=== PATIENT | female | born 1985 | race Hispanic/Latino ===

== ENCOUNTER 2024-10-29 09:41 | Emergency (ER) | payer BC, MEDICAID ==
[~2024-10-29] VITALS: Ht 162.6 cm; Wt 145.1 kg
--- NOTE | 2024-10-29 10:24 | ERN ---
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 Patient also complaining of a bump under her left armpit that has been there for years but noticed it was painful last night. Denies having any fever, nausea, vomiting diarrhea, chest pain or shortness a breath. Allergies: Coded Allergies: No Known Allergies (Unverified Allergy, Unknown, 10/29/24) Past Medical History Past Medical History: Hypertension Surgical History: LMP: Oct 14, 2024 Review of System Dictation Constitutional: Negative for fever,chills, and weight loss Eyes: Negative for injury, pain,redness, and discharge ENT: Complaining of throat pain Cardiovascular: Negative for chest pain, palpitations, and edema Respiratory: Negative for shortness of breath, cough, and wheezing, Abdomen/GI: Negative for abdominal pain, nausea, vomiting, diarrhea, and constipation Back: Negative for injury and pain : Negative for injury, bleeding and discharge MS/Extremity: Negative for injury and deformity Skin: Negative for rash, and discoloration complaining of, bump left under our Neuro: Negative for headache, weakness, numbness, tingling, and seizure Psych: Negative for suicide ideation, homicidal ideation, and hallucinations Review of Systems: was completed Initial Vital Sign VS Vital Signs Date Time Temp Pulse Resp B/P (MAP) Pulse Ox O2 Delivery O2 Flow Rate FiO2 10/29/24 11:30 97.9 87 18 150/80 99 Room Air* 0 21 Physical Exam Dictation Constitutional: Negative for fever,chills, and weight loss Eyes: Negative for injury, pain,redness, and discharge ENT: Negative for injury,pain or swelling Cardiovascular: Negative for chest pain, palpitations, and edema Respiratory: Negative for shortness of breath, cough, and wheezing, Abdomen/GI: Negative for abdominal pain, nausea, vomiting, diarrhea, and constipation Back: Negative for injury and pain : Negative for injury, bleeding and discharge MS/Extremity: Negative for injury and deformity Skin: Negative for rash, and discoloration Neuro: Negative for headache, weakness, numbness, tingling, and seizure Psych: Negative for suicide ideation, homicidal ideation, and hallucinations Results (Laboratory/Radiology) Laboratory/Radiology Laboratory Tests Test 10/29/24 09:50 Influenza Type A Antigen Negative For Type A Influenza Type B Antigen POSITIVE FOR TYPE B SARS-CoV-2, RNA, NAAT NEGATIVE SARS CoV-2 Group A Streptococcus Rapid negative (NEGATIVE) Labs Reviewed?: Yes ED Course ED Course Orders Procedure Category Date Status Time Covid Rna Naat LAB 10/29/24 Complete 09:47 Influenza Type A & B, LAB 10/29/24 Complete Rapid 09:47 Rapid (Group A Strep) LAB 10/29/24 Complete 09:47 Lidocaine Hcl 1% 20ml PHA 10/29/24 Complete Vial (Lidocaine Hc 10:13 Current Medications Medications (Trade) Dose Ordered Sig/Kelly Route PRN Reason Start Time Stop Time Status Last Admin Dose Admin Lidocaine HCl (Lidocaine HCl 1% 20ml Vial) 10 ml ONCE STAT INJ 10/29/24 10:13 10/29/24 10:14 DC 10/29/24 10:57 Vital Signs Date Time Temp Pulse Resp B/P (MAP) Pulse Ox O2 Delivery O2 Flow Rate FiO2 10/29/24 11:30 97.9 87 18 150/80 99 Room Air* 0 21 Medical Decision Making MDM MDM: 38-year-old female with medical history of high blood pressure coming in complaining of throat pain, cough, congestion for the last two days, 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 Patient also complaining of a bump under her left armpit that has been there for years but noticed it was painful last night. Denies having any fever, nausea, vomiting diarrhea, chest pain or shortness a breath. Procedure note for abscess drainage. Patient is came up positive for flu B. Discussed findings with the patient. Educated patient she can control fever and generalized body pain with Tylenol and Motrin. We will prescribe Tamiflu. Patient educated to follow up with PCP in 1-2 days. Discussed also on wound care. Educated on signs and symptoms when to return back to the emergency room. Patient verbalized understanding, answered all questions. Differential diagnosis: Abscess, cellulitis, flu, COVID, viral syndrome, strep throat Rationale: Tests considered and ordered secondary to shared decision making include: Previous outside records reviewed: Old ER visits. Risk of complication and/or morbidity or mortality of patient management: None Medications-Per medication reconciliation Need for hospitalization: Patient does not meet criteria for hospitalization. Need for emergency major/minor surgery: No There are no social concerns with this patient. Prescription drug management Prescriptions will include symptomatic care Patient's prior external medical records from other ER visits were reviewed by me as indicated. Prior testing and results from previous visits were reviewed. Prior tests were taken into account with medical decision making and resource utilization, independent historian/historians were used to obtain complete medical history. I independently interpreted the test that were performed, results were reviewed by me and considered findings on radiology if ordered. Medical management and examination interpretation discussions were had by me wi th other qualified healthcare professionals as indicated for the patient's care. DX & DISP Disposition: Discharge Departure Impression: Primary Impression: Influenza B Additional Impression: Axillary abscess Condition: Stable Scripts Oseltamivir Phosphate (Tamiflu) 75 Mg Cap 75 MG PO BID for 5 Days, #10 CAP Prov: CHANG COVARRUBIAS NP 10/29/24 Sulfamethoxazole/Trimethoprim (Bactrim Ds Tablet) 800 Mg-160 Mg Tablet 1 TAB PO BID for 7 Days, #14 TAB 0 Refills Prov: CHANG COVARRUBIAS NP 10/29/24 Additional Instructions: Please remove 1/4 of the packing into the packing is all gone. Cleaned the area with soap and water. Return to the ER if you have any worsening symptoms. Follow up with PCP in 1-2 days. Complete the course of antibiotics. Referrals: SELF,REFERRAL (PCP) Time of Disposition: 11:41 I have reviewed the case, and I agree with, Diagnosis and Plan CHANG COVARRUBIAS NP Oct 29, 2024 10:24
[2024-10-29 10:30] LABS: RAPID GROUP A STREP negative (NEGATIVE)
[2024-10-29 10:33] LABS: SARS-CoV-2, RNA, NAAT NEGATIVE SARS CoV-2 (NEGATIVE)
[2024-10-29 10:43] LABS: INFLUENZA TYPE A Negative For Type A (NEGATIVE)
[2024-10-29] MEDS: LIDOCAINE HCL 1% 20 ML VIAL INJ STA (10:57)
[2024-10-29 11:22] LABS: INFLUENZA TYPE B POSITIVE FOR TYPE B (NEGATIVE)
[2024-10-29 11:30] VITALS: BP 150/80; PULSE 87; RESP 18; TEMP 97.8; O2SAT 99
[2024-10-29] MEDS ORDERED: OSEL75 PO (11:41)
[2024-10-29] MEDS ORDERED: SULF1TAB42 PO (11:41)
== END 2024-10-29 12:02 | disposition home or self-care (01) ==
LOC: EDH 09:41
DX: R09.81 Nasal congestion (principal); J10.1 Influenza due to other identified influenza virus with other respiratory manifestations; L02.412 Cutaneous abscess of left axilla; I10 Essential (primary) hypertension; Z98.890 Other specified postprocedural states; Z20.822 Contact with and (suspected) exposure to COVID-19
CPT/HCPCS: 87635; 87804; 87880; 99283